=== PATIENT | male | born 2000 | race Two or more races ===

== ENCOUNTER 2025-02-25 20:41 | Emergency (ER) | payer MEDICAID, SELFPAY ==
[2025-02-25 20:43] VITALS: BMI 33.5
[2025-02-25 21:12] VITALS: BP 125/80; PULSE 73; RESP 20; TEMP 36.7; O2SAT 96
--- NOTE | 2025-02-25 21:33 | EDNOTE_ITS ---
ED Animal Bite RME/HPI General Chief Complaint: Animal Bite Stated Complaint: CAT BITE R HAND Time Seen by Provider: 02/25/25 20:54 Arrival date/time: 02/25/25 20:41 This is a case of 25-year-old male with no medical history came in in the emergency room due to laceration of the second index finger right and multiple cat scratch on the right hand and patient fostering a cat and accidentally bitten and sustained the above injury patient cat has rabies vaccine patient tetanus shot is not up-to-date no other injury noted Limitations: no limitations Related Data Home Medications ?Medication ?Instructions ?Recorded ?Confirmed clonazepam 0.5 mg tablet (Klonopin) 0.5 mg PO QDAY #0 tabs 01/11/14 diphenhydramine HCl 50 mg capsule 50 mg PO HS INSOMNIA #0 caps 01/11/14 methylphenidate HCl 54 mg 54 mg PO QAM #0 tabs 4 tablet,extended release 24 hr (Concerta) Previous Rx's ?Medication ?Instructions ?Recorded lorazepam 0.5 mg tablet 0.5 mg PO QDAY Anxiety #10 t abs 10/26/16 ibuprofen 800 mg tablet 800 mg PO TID PRN pain #30 t abs 03/09/21 clindamycin HCl 300 mg capsule 300 mg PO Q6H 10 days # 40 caps 02/25/25 (Cleocin HCl) ibuprofen 600 mg tablet 600 mg PO Q8H PRN pain #20 t abs 02/25/25 mupirocin 2 % topical ointment 1 applic topical BID #2 2 grams 02/25/25 (Centany) Allergies Allergy/AdvReac Type Severity Reaction Status Date / Time amoxicillin Allergy Intermediate Anaphylaxis Verified 03/09/21 13:29 clavulanic acid Allergy Intermediate Anaphylaxis Verified 03/09/21 13:29 sulfamethoxazole Allergy Unknown RASH, Verified 03/09/21 13:29 VOMITTING trimethoprim Allergy Unknown RASH, Verified 03/09/21 13:29 VOMITTING Review of Systems Review of Systems Systems Reviewed: All systems reviewed, normal except as documented Constitutional Constitutional: Reports system reviewed and no additional complaints, except as documented and Reports as per HPI Cardiovascular Cardiovascular: Reports system reviewed and no additional complaints, except as documented and Reports as per HPI Respiratory Respiratory: Reports system reviewed and no additional complaints, except as documented and Reports as per HPI Gastrointestinal Gastrointestinal: Reports system reviewed and no additional complaints, except as documented and Reports as per HPI Musculoskeletal Musculoskeletal: Reports system reviewed and no additional complaints, except as documented and Reports as per HPI Neurologic Neurologic: Reports system reviewed and no additional complaints, except as documented and Reports as per HPI Past Medical History Past Medical History CARDIAC: Negative Congestive Heart Failure RESPIRATORY: Positive Chronic Obstructive Pulmonary Disease (COPD) and Asthma GENITOURINARY: Negative Renal Disease ENDOCRINE: Negative Diabetes Mellitus Type 1 or Diabetes Mellitus Type 2 Social History SMOKING STATUS: Never smoker ED Exam General Limitations: Present no limitations General appearance: Present alert, in no apparent distress and other (Patient is awake alert oriented not in distress nontoxic looking well-hydrated well nourished) Head Head exam: Present atraumatic, normocephalic and normal inspection Eye Eye exam: Present normal appearance, PERRL and EOMI ENT ENT exam: Present normal exam, normal oropharynx and mucous membranes moist Neck Neck exam: Present normal inspection, full ROM and trachea midline; Absent tenderness, meningismus, lymphadenopathy or thyromegaly Chest Chest inspection: Present normal inspection and symmetric chest wall rise; Absent tenderness Respiratory Respiratory exam: Present normal lung sounds bilaterally; Absent respiratory distress, wheezes, stridor, accessory muscle use or prolonged expiratory phase Cardiovascular Cardiovascular exam: Present regular rate, normal rhythm and normal heart sounds; Absent bradycardia, tachycardia, irregular rhythm, systolic murmur or diastolic murmur Abdominal Exam Abdominal exam: Present soft and normal bowel sounds; Absent distention, tenderness, guarding, rebound, rigidity, diminished bowel sounds or hyperactive bowel sounds Extremities Exam Extremities exam: Present normal inspection and full ROM Back Exam Back exam: Present normal inspection and full ROM Neurological Exam Neurological exam: Present alert, oriented X3, CN II-XII intact, normal gait and reflexes normal; Absent motor sensory deficit Psychiatric Psychiatric exam: Present normal affect and normal mood Skin Skin exam: Present warm, dry, intact, normal color and other (Noted a 3 cm laceration second digit right hand minimal bleeding linear no foreign body no bone or tendon injury no abscess no cellulitis patient also had 2 superficial cat sctarch no abscess no cellulitis ROM intact neurovascular) Course Quality Measures none Orders Category Date Time Status Bacitracin Oint pkt Med 02/25/25 21:23 Discontinued 1 gm TOP X1 ONE Clindamycin [Cleocin] Med 02/25/25 21:24 Discontinued 300 mg PO X1 ONE HYDROcodone*/APAP 5/325 [[place] 5/325] Med 02/25/25 21:23 Discontinued 1 tab PO X1 ONE Lidocaine 1% Vial 20 ml [Xylocaine 1% 20 ML] Med 02/25/25 21:23 Once 20 ml IM X1 ONE TET,DIP/PERT AC (Adult)-Tdap [Boostrix Adult (Tdap) Med 02/25/25 21:23 Once Vacc] 0.5 ml IMI .ONCE ONE Vital Signs Vital signs: Vital Signs Temperature 98.1 F 02/25/25 21:12 Pulse Rate 73 02/25/25 21:12 Respiratory Rate 20 02/25/25 21:12 Blood Pressure 125/80 02/25/25 21:12 Pulse Oximetry (%) 96 02/25/25 21:12 Oxygen Delivery Method Room Air 02/25/25 21:12 Oxygen saturation is 96% on room air PROCEDURES: Laceration Laceration 1: Side (If applicable): right (Second digit right hand) Size (cm): 3 Description: linear Depth: simple, single layer Local Anesthetic: lidocaine 1% Amount of anesthesia used (mL): 4 Pre-repair: wound explored, irrigated extensively and deep structures intact Skin layer closed with: nylon Suture size (cm): 4-0 Number of sutures: 4 Technique: simple, interrupted Animal Bite MDM Narrative MDM Narrative:: This is a case of 25-year-old male with no medical history came in in the emergency room due to laceration of the second index finger right and multiple cat scratch on the right hand and patient fostering a cat and accidentally bitten and sustained the above injury patient cat has rabies vaccine patient tetanus shot is not up-to-date no other injury noted physical examination patient is awake alert oriented not in distress nontoxic looking well-hydrated well-nourished patient sustained a 3 cm laceration on the second index right finger minimal bleeding linear no foreign body noted tendon no bone injury no abscess no cellulitis patient also have 2 superficial cat scratch both dorsal and palmar area ROM intact neurovascular intact no abscess no cellulitis laceration repair was performed patient tolerated well procedure done by Stephens protocol and via sterile technique patient will follow-up with PCP in 2 days for reevaluation and wound check in 10 days for removal of suture for any signs and symptoms of infection or any worsening symptoms return precaution in the ER is advised Patient was discharged with comfortable condition walking with stable gait. Patient verbalized no further complains explained diagnosis and answered patient question. Patient is comfortable with the proposed management plan including the need to follow up with his/her primary care physician and any specialist if applicable Discussed patient for any urgent condition or worsening sx, He/She needed to go to emergency room immediately or call 911. Patient acknowledge the responsibility to follow up as instructed and to monitor her/his symptoms. For any persistence of the symptoms for more than 3-5 days return precaution advised. Discussed the result of the test and was given printed discharge instruction Patient data External records reviewed:: [facility] previous records Clinical information provided by:: patient Social determinants that could affect healthcare access:: none Patient has the following chronic illnesses:: none How is presenting disease/condition affected by chronic disease/condition?: no chronic disease Evaluation data The following diagnostics were reviewed and interpreted by me:: other (specify) (none) Lab and/or radiology exams considered but not ordered:: none Interpretation Summary: none Medications / Prescriptions Medications or Prescriptions considered but not ordered:: gven Medication administrations:: Medication Administration History Diphtheria/Tetanus/Acell Pertussis (Diphth,Pertuss(Acell),Tet Vac 0.5 Ml Syr- Adult) 0.5 ml IMi .ONCE ONE Stop: 02/25/25 21:24 Lidocaine HCl (Lidocaine Hcl 1% 20 Ml Vial) 20 ml IM X1 ONE Stop: 02/25/25 21:24 Discontinued Medications Hydrocodone Bitart/Acetaminophen (Hydrocodone/Apap 5/325 Tablet) 1 tab PO X1 ONE Stop: 02/25/25 21:24 Bacitracin (Bacitracin Oint 1 Gm Packet) 1 gm TOP X1 ONE Stop: 02/25/25 21:24 Clindamycin HCl (Clindamycin 150 Mg Capsule) 300 mg PO X1 ONE Stop: 02/25/25 21:25 given Consultations Consultation(s) initiated? (list below): No Diagnosis Differential diagnosis animal bite: bite by animal and cat bite Most likely diagnosis given after review of the tests above:: ctabite finger laceration cat scratch Admission Indicated Admission indicated?: not indicated Explain why admission is indicated or not indicated:: not indicated Admission Request Was there a request for admission?: No Admission Attestation Admission request attestation: not indicated Disposition Plan Disposition Plan: Discharge Discharge Attestation Discharge Attestation: The patient and all family members were given an opportunity to ask questions and understood the discharge instructions. Discharge instructions specifically effects, indications for sooner follow up or return to the emergency department, and the expected course of current diagnosis. Patient condition: Stable Discharge Plan Plan Patient Disposition: HOME (Self Care) Patient condition on transfer: Stable Prescriptions/Referrals Prescriptions/Med Rec: New clindamycin HCl [Cleocin HCl] 300 mg capsule 300 mg PO Q6H 10 Days Qty: 40 0RF mupirocin [Centany] 2 % ointment 1 applic topical BID Qty: 22 0RF ibuprofen 600 mg tablet 600 mg PO Q8H PRN (Reason: pain) Qty: 20 0RF No Action diphenhydramine HCl 50 MG capsule 50 mg PO HS Qty: 0 clonazepam [Klonopin] 0.5 MG tablet 0.5 mg PO QDAY Qty: 0 methylphenidate HCl [Concerta] 54 MG/BOTTLE tablet extended release 24 hr 54 mg PO QAM Qty: 0 lorazepam 0.5 MG tablet 0.5 mg PO QDAY Qty: 10 0RF ibuprofen 800 mg tablet 800 mg PO TID PRN (Reason: pain) Qty: 30 0RF Problem List Clinical Impression: Cat bite, Cat scratch, Finger laceration Patient/Caregiver Discharge Instructions Education Materials: Suture Care, Animal Bites and Scratches, ED Animal Bite (G eneral), ED Cat Bite, ED Laceration: All Closures Additional Instructions: Follow-up with your primary care physician in 2 days for reevaluation and wound check and removal of suture in 10 days worsening symptoms or any emergent concerns such as discoloration redness swelling discharge from the wound pain fever chills return to the emergency room immediately or call 911 take your medi cation as directed finish the course of antibiotic keep the area clean and dry Print Language: Com[place]an Stand Alone Forms: Kirsty Award Info., Work/School Release, Patient Portal Info Letter PA/MANAGER CODING Supervising Physician PA/MANAGER CODING Supervising Physician: Dr. Mj Burciaga
[2025-02-25] MEDS: CLINDAMYCIN 150 MG CAPSULE 300 MG PO (22:17)
[2025-02-25] MEDS: LIDOCAINE HCL 1% 20 ML VIAL IM (22:18)
[2025-02-25] MEDS: HYDROcodone/APAP 5/325 TABLET 1 TAB PO (22:18)
[2025-02-25] MEDS: BACITRACIN OINT 1 GM PACKET TOP (22:18)
== END 2025-02-25 22:56 | disposition home or self-care (01) ==
LOC: SERX 22:43
PROVIDERS: Emergency Provider Emergency Medicine
DX: S61.210A Laceration without foreign body of right index finger without damage to nail, initial encounter (principal); W55.03XA Scratched by cat, initial encounter
CPT/HCPCS: 12002; 96372; 99281; J3490; A9270